=== PATIENT | female | born 1945 | race Hispanic/Latino ===

== ENCOUNTER 2018-08-24 14:15 | Emergency (ER) | payer OTHER ==
[2018-08-24] MEDS ORDERED: MORPHINE SULFATE 2 MG/ML 1ML SYG ONE (15:32)
[2018-08-24] MEDS ORDERED: ONDANSETRON HCL 4 MG/2 ML VIAL ONE (15:32)
[2018-08-25] MEDS ORDERED: ENAL10TA PO (16:23)
[2018-08-25] MEDS ORDERED: SIMV5TAB58 PO (16:23)
[2018-08-25] MEDS ORDERED: METF-446 PO (16:23)
[2018-08-25] MEDS ORDERED: PIOG15TA66 PO (16:23)
[2018-08-25] MEDS ORDERED: OSCAL-D PO (16:23)
[2018-08-25] MEDS ORDERED: GLIP10TA9 PO (16:23)
[2018-08-25] MEDS ORDERED: TYL3 PO (16:23)
[2018-08-25] MEDS ORDERED: ASPI-555 PO (16:23)
== END 2018-08-24 17:08 | disposition home or self-care (01) ==
LOC: EDH 14:15
DX: S82.001A Unspecified fracture of right patella, initial encounter for closed fracture (principal); S82.831A Other fracture of upper and lower end of right fibula, initial encounter for closed fracture; I10 Essential (primary) hypertension; E78.5 Hyperlipidemia, unspecified; E11.9 Type 2 diabetes mellitus without complications; W18.39XA Other fall on same level, initial encounter; Y93.01 Activity, walking, marching and hiking; Y92.89 Other specified places as the place of occurrence of the external cause; Y99.8 Other external cause status
CPT/HCPCS: 29505; 73502; 73562 ×2; 73610; 96374; 96375; 99284; J2405

== ENCOUNTER 2018-08-26 07:25 | Observation (INO) | payer OTHER ==
[2018-08-25 15:59] LABS: BASOPHILS % (AUTO) 0.3 % (0.0-5.0); EOSINOPHILS % (AUTO) 0.5 % (0.0-8.0); HEMATOCRIT 36.3 % (36-48); LYMPHOCYTES % (AUTO) 10.9 % (21.0-51.0); MEAN CORPUSCULAR HEMOGLOBIN 30.7 pg (27.0-33.0); MONOCYTES % (AUTO) 5.2 % (3.0-13.0); NEUTROPHILS % (AUTO) 83.1 % (40.0-77.0); PLATELET COUNT (AUTO) 229 K/uL (130-400); RED CELL DISTRIBUTION WIDTH 13.9 % (11.0-15.5); WHITE BLOOD COUNT (AUTO) 7.8 K/uL (4.8-10.8)
[2018-08-25 16:02] VITALS: BP 141/62
[2018-08-25 16:16] LABS: CREATININE 0.8 mg/dL (0.5-1.5); POTASSIUM 4.6 mmol/L (3.5-5.1)
[~2018-08-26] VITALS: Ht 157.5 cm; Wt 73.5 kg
[2018-08-26] VITALS (20 sets, daily range): BP systolic 118–145; BP diastolic 50–92
[~2018-08-26 07:25] MED LIST: ASPI-555 PO; ENAL10TA PO; GLIP10TA9 PO; METF-446 PO; OSCAL-D PO; PIOG15TA66 PO; SIMV5TAB58 PO; TYL3 PO
[2018-08-26] MEDS: CEFAZOLIN SODIUM 1 GM VIAL IVP SCH ×3 (09:00→20:13)
[2018-08-26] MEDS ORDERED: SODIUM CHLORIDE 0.9% 1000ML 1,000 ML IV ONE (09:19)
[2018-08-26] MEDS ORDERED: CARB28DR OP (09:34)
[2018-08-26] MEDS ORDERED: CEFAZOLIN SODIUM 1 GM VIAL ONE (12:08)
[2018-08-26] MEDS ORDERED: MIDAZOLAM HCL 1 MG/ML 2ML VIAL ONE (13:54)
[2018-08-26] MEDS ORDERED: ROPIVACAINE 0.5% 5MG/ML 30ML IJ ONE (13:55)
[2018-08-26] MEDS ORDERED: LIDOCAINE PF 2% 5ML ABBOJECT ONE (13:57)
[2018-08-26] MEDS ORDERED: ONDANSETRON HCL 4 MG/2 ML VIAL ONE (13:57)
[2018-08-26] MEDS ORDERED: PROPOFOL 10 MG/ML 20ML VIAL IV ONE (13:57)
[2018-08-26] MEDS ORDERED: FENTANYL CITRATE PF 50 MCG/1 ML 2ML VIAL ONE ×3 (13:57→15:38)
[2018-08-26] MEDS ORDERED: EPHEDRINE SULFATE 50 MG/ML AMPULE ONE (14:18)
[2018-08-26] MEDS ORDERED: FERROUS FUMARATE 324 MG TABLET PO PRN (15:30)
[2018-08-26] MEDS ORDERED: LIDOCAINE HCL-MPF 1% 2ML VIAL IVP PRN (15:30)
[2018-08-26] MEDS ORDERED: POTASSIUM CHLORIDE 20MEQ/100ML 100 ML IV PRN (15:30)
[2018-08-26] MEDS ORDERED: TEMAZEPAM 15 MG CAPSULE PO PRN (15:30)
[2018-08-26] MEDS ORDERED: PROMETHAZINE HCL 25 MG/ML 1ML AMPULE IM PRN (15:30)
[2018-08-26] MEDS ORDERED: POTASSIUM CHLORIDE 10% ELIXIR 20 MEQ/15 ML UDCUP PO PRN (15:30)
[2018-08-26] MEDS ORDERED: DiphenhydrAMINE HCL 50 MG/ML VIAL IVP PRN (15:30)
[2018-08-26] MEDS ORDERED: CALCIUM CARBONATE 500 MG TABLET PO PRN (15:30)
[2018-08-26] MEDS ORDERED: OXYCODONE HCL 5 MG TAB PO PRN (15:30)
[2018-08-26] MEDS ORDERED: TRAMADOL HCL 50 MG TABLET PO PRN (15:30)
[2018-08-26] MEDS ORDERED: DIPHENHYDRAMINE HCL 25 MG CAPSULE PO PRN (15:30)
[2018-08-26] MEDS ORDERED: POTASSIUM CHLORIDE 20 MEQ ERTAB PO PRN (15:30)
[2018-08-26] MEDS: ACETAMINOPHEN EXTRA STRENGTH 500 MG TABLET PO SCH ×2 (15:30→22:22)
[2018-08-26] MEDS ORDERED: KETOROLAC TROMETHAMINE 15MG/ML IV PRN (15:30)
[2018-08-26] MEDS ORDERED: MEPERIDINE-PF 25 MG/ML SYG ONE ×2 (16:27→16:42)
[2018-08-26] MEDS: SODIUM CHLORIDE 0.9% 1000ML 1,000 ML IV SCH (17:20)
--- NOTE | 2018-08-26 17:25 | NUR ---
DCP CM met with pt discussed dc plans. Pt is independent prior to surgery, lives at home w/spouse. Has a walker, cane, shower chair, 3 in 1 chair. Denies any other equipments/services. Pt feels safe to go back home, spouse able to assist with transportation and needs. DC plan to home once stable. CM to cont to follow up. Addendum: 08/26/18 at 1726 by ALO NIEVES LVN CM Amended: Links added.
[2018-08-26] MEDS: OXYCODONE HCL 5 MG TAB PO PRN (18:22)
[2018-08-26] MEDS: GLIPIZIDE 5 MG TABLET PO SCH (19:48)
[2018-08-26] MEDS: METFORMIN HCL 500 MG TABLET PO SCH (19:49)
[2018-08-26] MEDS: CELECOXIB 200 MG CAP PO SCH (19:50)
[2018-08-26] MEDS: FAMOTIDINE 20MG TAB 20 MG TAB PO SCH (19:50)
[2018-08-26] MEDS: PREGABALIN 25 MG CAP PO SCH (19:50)
[2018-08-26] MEDS ORDERED: PIOGLITAZONE HCL 15 MG TAB PO SCH (21:00)
[2018-08-26] MEDS ORDERED: SIMVASTATIN 10 MG TABLET PO SCH (21:00)
[2018-08-27] MEDS: SODIUM CHLORIDE 0.9% 1000ML 1,000 ML IV SCH ×2 (00:51→11:29)
[2018-08-27] MEDS: CEFAZOLIN SODIUM 1 GM VIAL IVP SCH (03:53)
[2018-08-27 04:00] VITALS: BP 123/58
[2018-08-27 05:41] LABS: MEAN CORPUSCULAR HEMOGLOBIN 30.6 pg (27.0-33.0); MEAN CORPUSCULAR VOLUME 92.7 fL (79-99); PLATELET COUNT (AUTO) 185 K/uL (130-400); RED BLOOD CELL COUNT(AUTO) 3.23 MIL/uL (4.00-5.50); RED CELL DISTRIBUTION WIDTH 14.2 % (11.0-15.5); WHITE BLOOD COUNT (AUTO) 6.6 K/uL (4.8-10.8)
[2018-08-27 05:47] LABS: CREATININE 0.7 mg/dL (0.5-1.5); POTASSIUM 4.1 mmol/L (3.5-5.1)
[2018-08-27] MEDS: ACETAMINOPHEN EXTRA STRENGTH 500 MG TABLET PO SCH ×2 (06:40→15:07)
[2018-08-27 07:54] VITALS: BP 142/62
[2018-08-27] MEDS: FAMOTIDINE 20MG TAB 20 MG TAB PO SCH (08:35)
[2018-08-27] MEDS: CELECOXIB 200 MG CAP PO SCH (08:35)
[2018-08-27] MEDS: PREGABALIN 25 MG CAP PO SCH (08:36)
[2018-08-27] MEDS: METFORMIN HCL 500 MG TABLET PO SCH (08:36)
[2018-08-27] MEDS: GLIPIZIDE 5 MG TABLET PO SCH (08:36)
[2018-08-27] MEDS ORDERED: ENOXAPARIN SODIUM 40 MG/0.4 ML SYRINGE SQ SCH (09:00)
[2018-08-27] MEDS ORDERED: OSCAL D 500 MG PO SCH (09:00)
[2018-08-27] MEDS ORDERED: POLYETHYLENE GLYCOL 3350 17 GM POWD.PACK PO SCH (09:00)
[2018-08-27] MEDS ORDERED: ENALAPRIL MALEATE 10 MG TABLET PO SCH (09:00)
[2018-08-27] MEDS: OXYCODONE HCL 5 MG TAB PO PRN ×2 (11:04→15:08)
[2018-08-27 11:16] VITALS: BP 154/61
[2018-08-27] MEDS ORDERED: PSYLLIUM SEED 1 EACH PACKET PO SCH (12:00)
[2018-08-27] MEDS ORDERED: ASPI-1012 PO (13:04)
[2018-08-27] MEDS ORDERED: HYDR-4457 PO (13:04)
--- NOTE | 2018-08-27 17:30 | NUR ---
INSTRUCTIONS DISCHARGE INSTRUCTIONS GIVEN TO PATIENT AND FAMILY USING TEACH BACK. DRESSING CHANGE PERFORMED PER MD ORDER AND TAUGHT TO SPOUSE WITH GOOD TEACH BACK. NEW PRESCRIPTIONS PLACED IN PACKET ALONG WITH ALL PRINTED INFORMATION AND MD INSTRUCTIONS. NO QUESTIONS VOICED AT THIS TIME. IV REMOVED WITH TIP INTACT. DIRECT PRESSURE APPLIED UNTIL BLEEDING CONTROLLED THEN SITE COVERED WITH GAUZE AND SECURED WITH A BAND-AID.
[2018-08-28] MEDS ORDERED: BISACODYL 5 MG TABLET.DR PO PRN (15:30)
[2018-08-29] MEDS ORDERED: BISACODYL 10 MG SUPP.RECT RC PRN (15:30)
== END 2018-08-27 17:20 | disposition home or self-care (01) ==
LOC: DAH 07:25 → 4AH 07:26 → DAH 07:26
PROVIDERS: ADMIT Orthopaedic Surgery; ATTEND Orthopaedic Surgery
DX: S82.041A Displaced comminuted fracture of right patella, initial encounter for closed fracture (principal); M25.00 Hemarthrosis, unspecified joint; X58.XXXA Exposure to other specified factors, initial encounter; E11.9 Type 2 diabetes mellitus without complications; I10 Essential (primary) hypertension; E78.5 Hyperlipidemia, unspecified; Z83.3 Family history of diabetes mellitus; Y93.89 Activity, other specified; Y92.89 Other specified places as the place of occurrence of the external cause; Y99.8 Other external cause status; Z79.899 Other long term (current) drug therapy
CPT/HCPCS: 27524; 36415 ×2; 73562; 80048 ×2; 82948 ×5; 85025; 85027; 93005; 96372 ×2; 96374; 96375; 96376; 97039 ×2; 97116 ×2; 97161; A4218; A4344; A4600; A4649 ×2; A4930 ×2; G0168; G0378 ×24; G8978; G8979; G8980; G8981; G8982; G8983; J0690 ×4; J1650; J1885; J2001; J2175 ×2; J2250; J2405; J2704; J2795; J3010 ×3; J3490; J7030

== ENCOUNTER → 2019-05-13 | Outpatient (CLI) | payer OTHER ==
[~2019-05-13] MED LIST changes: +ASPI-1012 PO; -ASPI-555 PO; +CARB28DR OP; +HYDR-4457 PO; -TYL3 PO
== END | disposition home or self-care (01) ==
LOC: OIH 12:57
PROVIDERS: ATTEND Family Medicine
DX: M19.072 Primary osteoarthritis, left ankle and foot (principal)
CPT/HCPCS: 73610

== ENCOUNTER 2022-06-27 16:03 | Inpatient (IN) | payer OTHER ==
[~2022-06-27] VITALS: Ht 157.5 cm; Wt 81.2 kg
[~2022-06-27 16:03] MED LIST changes: +CARB1DRO OP; -CARB28DR OP; +ENAL-89 PO; -ENAL10TA PO
[2022-06-27] MEDS ORDERED: MORPHINE 2 MG SYG IM ONE (17:30)
[2022-06-27] MEDS ORDERED: LABETALOL 20MG SYG IV PRN (20:30)
[2022-06-27] MEDS ORDERED: CLONIDINE HCL 0.1 MG TABLET PO PRN (20:30)
[2022-06-27] MEDS ORDERED: ONDANSETRON 4MG INJ IVP PRN (20:30)
[2022-06-27] MEDS ORDERED: HYDRALAZINE 20MG/ML VIAL IV PRN (20:30)
[2022-06-27] MEDS ORDERED: TEMAZEPAM 15 MG CAPSULE PO PRN (20:30)
[2022-06-27] MEDS ORDERED: LACTULOSE 20 GM/30 ML UDCUP PO PRN (20:30)
[2022-06-27] MEDS ORDERED: MORPHINE 2 MG SYG IVP PRN (20:30)
[2022-06-27] MEDS ORDERED: ACETAMINOPHEN 325 MG TAB PO PRN (20:30)
[2022-06-27] MEDS ORDERED: ACETAMINOPHEN 650 MG SUPPOSITORY RC PRN (20:30)
[2022-06-27] MEDS ORDERED: DOCUSATE SODIUM 100 MG CAP PO PRN (20:30)
[2022-06-27] MEDS: LACTATED RINGERS 1000ML 1,000 ML IV SCH (21:24)
[2022-06-27] MEDS: TRAMADOL HCL 50 MG TABLET PO PRN (22:29)
[2022-06-28] VITALS (7 sets, daily range): BP systolic 97–153; BP diastolic 33–56
[2022-06-28] MEDS: INSULIN HUMULIN R 100 UNIT/ML 3ML SQ SCH ×5 (00:10→20:32)
[2022-06-28 02:43] LABS: BASOPHILS % (AUTO) 0.5 % (0.0-5.0); HEMATOCRIT 31.7 % (36-48); LYMPHOCYTES % (AUTO) 20.6 % (21.0-51.0); MEAN CORPUSCULAR HEMOGLOBIN 30.1 pg (27.0-33.0); MEAN CORPUSCULAR HGB CONC 32.2 g/dL (32.0-36.0); MEAN CORPUSCULAR VOLUME 93.5 fL (79-99); MONOCYTES % (AUTO) 7.4 % (3.0-13.0); NEUTROPHILS % (AUTO) 70.3 % (40.0-77.0); PLATELET COUNT (AUTO) 186 K/uL (130-400); RED BLOOD CELL COUNT(AUTO) 3.39 MIL/uL (4.00-5.50); RED CELL DISTRIBUTION WIDTH 13.8 % (11.0-15.5); WHITE BLOOD COUNT (AUTO) 5.8 K/uL (4.8-10.8)
[2022-06-28 03:29] LABS: INR 0.98 (0.85-1.15); PROTHROMBIN TIME 10.7 SEC (9.6-11.6)
[2022-06-28 03:30] LABS: PARTIAL THROMBOPLASTIN TIME 27.7 SEC (26.3-35.5)
[2022-06-28 03:53] LABS: CREATININE 0.8 mg/dL (0.5-1.5); MAGNESIUM 1.7 mg/dL (1.80-2.40); PHOSPHORUS 3.5 mg/dL (2.5-4.9); POTASSIUM 4.3 mmol/L (3.5-5.1)
[2022-06-28] MEDS ORDERED: POTASSIUM CHLORIDE 20MEQ/100ML 100 ML IV PRN ×2 (11:00)
[2022-06-28] MEDS ORDERED: KCL 20 MEQ ERTAB PO PRN (11:00)
[2022-06-28] MEDS ORDERED: POTASSIUM CHLORIDE 10% ELIXIR 20 MEQ/15 ML UDCUP PO PRN (11:00)
[2022-06-28] MEDS ORDERED: LIDOCAINE HCL-MPF 1% 2ML VIAL IV PRN ×2 (11:00)
[2022-06-28] MEDS ORDERED: MAGNESIUM 2GM PREMIX 50ML 50 ML IV PRN (11:00)
[2022-06-28] MEDS ORDERED: GLIP10TA19 PO (11:11)
[2022-06-28] MEDS ORDERED: PIOG30TA70 PO (11:11)
[2022-06-28] MEDS ORDERED: SIMV10TA97 PO (11:11)
[2022-06-28] MEDS ORDERED: ENAL20TA18 PO (11:11)
[2022-06-28] MEDS: TRAMADOL HCL 50 MG TABLET PO PRN (12:51)
[2022-06-28] MEDS: SIMVASTATIN 10 MG TABLET PO SCH (20:32)
[2022-06-28] MEDS: CARBOXYMETHYLCELLULOSE SODIUM OP SCH (20:33)
[2022-06-29] VITALS (23 sets, daily range): BP systolic 114–160; BP diastolic 50–75
[2022-06-29 06:04] LABS: HEMATOCRIT 31.3 % (36-48); MEAN CORPUSCULAR HEMOGLOBIN 29.8 pg (27.0-33.0); MEAN CORPUSCULAR VOLUME 96.3 fL (79-99); RED BLOOD CELL COUNT(AUTO) 3.25 MIL/uL (4.00-5.50); RED CELL DISTRIBUTION WIDTH 13.8 % (11.0-15.5); WHITE BLOOD COUNT (AUTO) 4.5 K/uL (4.8-10.8)
[2022-06-29 06:11] LABS: CREATININE 0.8 mg/dL (0.5-1.5); MAGNESIUM 1.8 mg/dL (1.80-2.40)
[2022-06-29] MEDS ORDERED: PROPOFOL 10 MG/ML 20ML VIAL IV ONE (06:54)
[2022-06-29] MEDS ORDERED: FENTANYL CITRATE PF 50 MCG/1 ML 2ML VIAL ONE ×2 (06:54)
[2022-06-29] MEDS ORDERED: ROCURONIUM 10MG/1ML SYR 10 MG/ML ML ONE (06:54)
[2022-06-29] MEDS ORDERED: MIDAZOLAM HCL 1 MG/ML 2ML VIAL ONE (08:08)
[2022-06-29] MEDS ORDERED: ROPIVACAINE 0.5% 5MG/ML 30ML IJ ONE (08:09)
[2022-06-29] MEDS ORDERED: CEFAZOLIN SODIUM 1 GM VIAL IV ONE (08:30)
[2022-06-29] MEDS ORDERED: CEFAZOLIN SODIUM 1 GM VIAL ONE (08:34)
[2022-06-29] MEDS: ENALAPRIL MALEATE 10 MG TABLET PO SCH (09:00)
[2022-06-29] MEDS ORDERED: KETOROLAC 30MG VIAL (30MG/ML) ONE (09:44)
[2022-06-29] MEDS ORDERED: GLYCOPYRROLATE 1 MG/5 ML SYRINGE ONE (09:47)
[2022-06-29] MEDS ORDERED: NEOSTIGMINE 5MG/5ML SYR IV ONE (09:47)
[2022-06-29] MEDS ORDERED: MEPERIDINE-PF 25 MG/ML SYG ONE (10:10)
[2022-06-29] MEDS: INSULIN HUMULIN R 100 UNIT/ML 3ML SQ SCH ×4 (13:10→23:58)
[2022-06-29] MEDS: TRAMADOL HCL 50 MG TABLET PO PRN ×2 (15:12→23:21)
[2022-06-29] MEDS: SIMVASTATIN 10 MG TABLET PO SCH (19:34)
[2022-06-29] MEDS: CARBOXYMETHYLCELLULOSE SODIUM OP SCH (21:00)
[2022-06-30] MEDS: HYDROCODONE/ACETAMINOPHEN 5/325 MG TAB PO PRN ×2 (03:45→20:22)
[2022-06-30] MEDS: LACTATED RINGERS 1000ML 1,000 ML IV SCH (03:47)
[2022-06-30 04:00] VITALS: BP 152/65
[2022-06-30 06:08] LABS: HEMATOCRIT 28.9 % (36-48); MEAN CORPUSCULAR HEMOGLOBIN 30.4 pg (27.0-33.0); MEAN CORPUSCULAR HGB CONC 32.5 g/dL (32.0-36.0); MEAN CORPUSCULAR VOLUME 93.5 fL (79-99); RED BLOOD CELL COUNT(AUTO) 3.09 MIL/uL (4.00-5.50); RED CELL DISTRIBUTION WIDTH 13.6 % (11.0-15.5); WHITE BLOOD COUNT (AUTO) 8.1 K/uL (4.8-10.8)
[2022-06-30] MEDS: INSULIN HUMULIN R 100 UNIT/ML 3ML SQ SCH ×3 (06:09→18:00)
[2022-06-30 06:12] LABS: CREATININE 0.7 mg/dL (0.5-1.5); MAGNESIUM 1.6 mg/dL (1.80-2.40); POTASSIUM 4.3 mmol/L (3.5-5.1)
[2022-06-30 08:00] VITALS: BP 119/47
[2022-06-30] MEDS: ENOXAPARIN SODIUM 40 MG/0.4 ML SYRINGE SQ SCH (08:58)
[2022-06-30] MEDS: TRAMADOL HCL 50 MG TABLET PO PRN ×2 (08:58→15:01)
[2022-06-30] MEDS: ENALAPRIL MALEATE 10 MG TABLET PO SCH (09:00)
[2022-06-30 11:00] VITALS: BP 142/63
[2022-06-30 16:00] VITALS: BP 138/49
[2022-06-30 20:12] VITALS: BP 125/63
[2022-06-30] MEDS: CARBOXYMETHYLCELLULOSE SODIUM OP SCH (20:22)
[2022-06-30] MEDS: SIMVASTATIN 10 MG TABLET PO SCH (20:22)
[2022-07-01] VITALS (7 sets, daily range): BP systolic 109–146; BP diastolic 50–61
[2022-07-01] MEDS: LACTATED RINGERS 1000ML 1,000 ML IV SCH ×2 (02:44→20:33)
[2022-07-01] MEDS: INSULIN HUMULIN R 100 UNIT/ML 3ML SQ SCH ×5 (02:44→20:26)
[2022-07-01] MEDS: TRAMADOL HCL 50 MG TABLET PO PRN ×2 (02:45→09:01)
[2022-07-01 05:21] LABS: MEAN CORPUSCULAR HEMOGLOBIN 30.8 pg (27.0-33.0); MEAN CORPUSCULAR HGB CONC 33.1 g/dL (32.0-36.0); MEAN CORPUSCULAR VOLUME 93.2 fL (79-99); RED BLOOD CELL COUNT(AUTO) 2.79 MIL/uL (4.00-5.50); RED CELL DISTRIBUTION WIDTH 13.5 % (11.0-15.5); WHITE BLOOD COUNT (AUTO) 6.6 K/uL (4.8-10.8)
[2022-07-01 05:31] LABS: CREATININE 0.7 mg/dL (0.5-1.5); MAGNESIUM 1.8 mg/dL (1.80-2.40); POTASSIUM 4.2 mmol/L (3.5-5.1)
[2022-07-01] MEDS: ENALAPRIL MALEATE 10 MG TABLET PO SCH (08:59)
[2022-07-01] MEDS: ENOXAPARIN SODIUM 40 MG/0.4 ML SYRINGE SQ SCH (09:01)
[2022-07-01] MEDS: SIMVASTATIN 10 MG TABLET PO SCH (20:27)
[2022-07-01] MEDS: CARBOXYMETHYLCELLULOSE SODIUM OP SCH (20:27)
[2022-07-02] MEDS: TRAMADOL HCL 50 MG TABLET PO PRN ×2 (00:39→11:31)
[2022-07-02 04:19] VITALS: BP 132/55
[2022-07-02 05:25] LABS: HEMATOCRIT 25.8 % (36-48); MEAN CORPUSCULAR HEMOGLOBIN 30.3 pg (27.0-33.0); MEAN CORPUSCULAR HGB CONC 32.2 g/dL (32.0-36.0); MEAN CORPUSCULAR VOLUME 94.2 fL (79-99); RED BLOOD CELL COUNT(AUTO) 2.74 MIL/uL (4.00-5.50); RED CELL DISTRIBUTION WIDTH 13.5 % (11.0-15.5); WHITE BLOOD COUNT (AUTO) 5.6 K/uL (4.8-10.8)
[2022-07-02 05:35] LABS: CREATININE 0.6 mg/dL (0.5-1.5); MAGNESIUM 1.9 mg/dL (1.80-2.40); POTASSIUM 4.3 mmol/L (3.5-5.1)
[2022-07-02] MEDS: INSULIN HUMULIN R 100 UNIT/ML 3ML SQ SCH ×2 (05:44→11:28)
[2022-07-02 08:00] VITALS: BP 128/59
[2022-07-02] MEDS: ENOXAPARIN SODIUM 40 MG/0.4 ML SYRINGE SQ SCH (09:00)
[2022-07-02] MEDS: ENALAPRIL MALEATE 10 MG TABLET PO SCH (09:00)
[2022-07-02 11:58] VITALS: BP 119/56
== END 2022-07-02 13:47 | DRG 493 ==
LOC: EDH 16:03 → OBSVTOIN 20:24 → EDHIP 20:24 → UNDOADMOB 20:24 → INTOOBSV 20:24 → EDHIP 06-28 01:25 → 3DH 06-28 01:25
PROVIDERS: ADMIT Internal Medicine Critical Care Medicine; ATTEND Internal Medicine Critical Care Medicine
PROC: 0PSL04Z Reposition Left Ulna with Internal Fixation Device, Open Approach (ICD-10-PCS; 2022-06-29)
PROC: 0PSG04Z Reposition Left Humeral Shaft with Internal Fixation Device, Open Approach (ICD-10-PCS; principal; 2022-06-29 08:44)
DX: S52.022A Displaced fracture of olecranon process without intraarticular extension of left ulna, initial encounter for closed fracture (principal); S42.432A Displaced fracture (avulsion) of lateral epicondyle of left humerus, initial encounter for closed fracture; E11.9 Type 2 diabetes mellitus without complications; Z20.822 Contact with and (suspected) exposure to COVID-19; E66.01 Morbid (severe) obesity due to excess calories; E78.00 Pure hypercholesterolemia, unspecified; I10 Essential (primary) hypertension; M81.0 Age-related osteoporosis without current pathological fracture; W18.39XA Other fall on same level, initial encounter; Y93.89 Activity, other specified; Y92.89 Other specified places as the place of occurrence of the external cause; Y99.8 Other external cause status; Z68.32 Body mass index [BMI] 32.0-32.9, adult
CPT/HCPCS: 36415; 70450; 71045; 73060; 73070; 73080; 73090; 73200; 73562; 80048; 82550; 82948; 83735; 83874; 84100; 84484; 85025; 85027; 85610; 85730; 86900; 86901; 87635; 93306; 93356; 97039; G0378; J0690; J1650; J1815; J1885; J2175; J2250; J2704; J2710; J2795; J3010; J3475; J3490; J7120